=== PATIENT | female | born 1945 | race Caucasian/White ===

== ENCOUNTER → 2017-02-03 | Outpatient (CLI) | payer MEDICARE, OTHER ==
[~2017-02-03] MED LIST: ASPIRIN EC81 MG PO; CALCIUM 600 +1 EACH PO; COREG 3.1253.125 MG PO; DITROPAN5 MG PO; FISH OIL1000 MG PO; GARLIC1 EACH PO; GLUCOSAMINE H1500 MG PO; MOBIC15 MG PO; PRILOSEC20 MG PO; PRINIVIL OR ZES10 MG PO; THERAGRAN-M1 TAB PO; TYLENOL ARTHRI650 MG PO; VITAMIN D-32000 UNI1 PO; ZOCOR10 MG PO; [UNRECOGNIZED DRUG - OTHER] PO
== END | disposition disaster alternative care site (69) ==
LOC: GBCOE 01-25 09:00
DX: Z12.31 Encounter for screening mammogram for malignant neoplasm of breast (principal)
CPT/HCPCS: G0202